=== PATIENT | female | born 1990 | race African-American/Black ===

== ENCOUNTER 2022-02-05 11:36 | Emergency (ER) | payer OTHER, SELFPAY ==
--- NOTE | ~2022-02-05 | XR_ITS ---
EXAMINATION: XR chest 2V DATE: 02/05/2022 12:06 INDICATION: Left chest pain. TECHNIQUE: Frontal and lateral views of the chest were obtained. COMPARISON: Chest single view 07/02/2021 FINDINGS: There is no pneumonia, pleural effusion, or pneumothorax. The heart size is normal. IMPRESSION: 1. No acute cardiopulmonary disease. Reviewed, dictated and finalized at location A.
[2022-02-05 11:40] VITALS: BP 132/81; PULSE 96; RESP 18; TEMP 36.8; O2SAT 100
--- NOTE | 2022-02-05 11:47 | PC.NURSE ---
Dr. Ring at bedside to assess pt.
--- NOTE | 2022-02-05 11:49 | ECG_ITS ---
Measurements Intervals [place] Rate: 86 P: 60 SD: 116 QRS: 25 QRSD: 92 T: 54 QT: 340 QTc: 407 Interpretive Statements SINUS RHYTHM WITH MARKED SINUS ARRHYTHMIA WITH SHORT SD INTERVAL NO PREVIOUS ECG AVAILABLE FOR COMPARISON Electronically Signed On 02-05-2022 18:32:31 CDT by Crista Moulton M.D.
[2022-02-05 11:51] VITALS: PULSE 101; RESP 21
[2022-02-05 12:00] VITALS: PULSE 93; RESP 19
[2022-02-05] MEDS: CYCLOBENZAPRINE HCL 5 MG TABLET PO (12:00)
[2022-02-05] MEDS: IBUPROFEN 600 MG TABLET PO (12:00)
--- NOTE | 2022-02-05 12:03 | PC.NURSE ---
Patient off unit to Radiology
[2022-02-05 12:04] LABS: Basophils Percent Auto 0.7 % (0.2-1.2); Eosinophils Absolute Auto 0.3 K/mm3 (0-0.3); Eosinophils Percent Auto 6.2 % (0-4.4); Hematocrit 38.8 % (37.0-47.0); Hemoglobin 12.7 g/dL (12.0-15.0); Immature Granulocyte Absolute 0.01 K/mm3 (0.00-0.031); Immature Granulocyte Percent A 0.2 % (0-0.5); Lymphocytes Absolute Auto 1.67 K/mm3 (0.9-3.2); Lymphocytes Percent Auto 36.7 % (18.3-44.2); Mean Corpuscular HGB Conc 32.7 g/dl (32-36); Mean Corpuscular Hemoglobin 29.4 pg (26-34); Mean Corpuscular Volume 89.8 fl (80-100); Mean Platelet Volume 9.9 fl (7.4-10.4); Monocytes Absolute Auto 0.4 K/mm3 (0.1-0.6); Neutrophils Absolute Auto 2.2 K/mm3 (1.3-6.7); Neutrophils Percent Auto 47.2 % (45.5-73.1); Platelet Count Result 260 k/mm3 (150-375); Red Blood Count 4.32 M/mm3 (4.2-5.4); Red Cell Distribution Width 12.4 % (11.5-14.5); White Blood Count 4.6 K/mm3 (4.5-10.0)
[2022-02-05 12:10] VITALS: PULSE 78; O2SAT 100
[2022-02-05 12:15] LABS: Alanine Aminotransferase 9 U/L (6-35); Albumin Level 3.9 g/dL (3.5-5.1); Alkaline Phosphatase 87 U/L (38-126); Anion Gap 8 mmol/L (8-16); Aspartate Amino Transferase 21 U/L (14-36); Bilirubin,Total 0.3 mg/dL (0.2-1.3); Blood Urea Nitrogen 10 mg/dL (7-17); Calcium 8.6 mg/dL (8.4-10.2); Carbon Dioxide 24 mmol/L (22-30); Chloride 105 mmol/L (98-107); Estimated CRCL calculation 88 ml/min; Estimated Glomerular Filt Rate > 60; Glucose 89 mg/dL (65-110); Lipase 105 U/L (23-300); Sodium 137 mmol/L (137-145)
--- NOTE | 2022-02-05 12:17 | ED.CHESTPAIN ---
HPI - Chest Pain General Chief Complaint: Chest Pain Stated Complaint: chest pain Time Seen by Provider: 02/05/22 11:46 Source: patient and RN notes reviewed Mode of arrival: ambulatory Limitations: no limitations History of Present Illness HPI narrative: This is a healthy 31 year old female who presents for evaluation of right chest pain. She was sitting on the couch when she was moving and she heard pop to right chest pain. She has been having intermittent sharp pain to right chest that seem worse with movement and occasionally breathing. This started 1 hour ago. She has not taken anything for her pain. Related Data Allergies Allergy/AdvReac Type Severity Reaction Status Date / Time No Known Allergies Allergy Verified 02/05/22 11:46 Review of Systems Review of Systems: All systems reviewed & are unremarkable except as noted in HPI and below Constitutional: Constitutional: Denies chills, Denies fatigue and Denies fever(s) ENT: Denies nasal congestion and Denies sore throat Cardiovascular: Cardiovascular: Reports chest pain, Denies rapid heart rate, Denies radiating jaw, neck or arm pain and Denies slow heart rate Respiratory: Respiratory: Denies chest congestion, Denies cough and Denies dyspnea Gastrointestinal: Gastrointestinal: Denies abdominal pain, Denies bloating, Denies nausea and Denies vomiting PMFSH Past Medical History Medical History (Updated 02/05/22 @ 13:18 by Gela Ring MD) Patient denies medical problems Surgical History Surgical History (Updated 02/05/22 @ 13:10 by Gela Ring MD) No pertinent past surgical history Social History Social History (Updated 02/05/22 @ 13:10 by Gela Ring MD) Smoking status: Never smoker Exam Const: General: no acute distress and alert Nutritional Appearance: well nourished Orientation/consciousness: patient oriented x3 Limitations: no limitations HENMT: Head: normal to inspection Mouth: Yes Normal oral and palatal mucosa present Eyes: EOM: EOMs intact bilaterally Chest: Chest palpation & inspection: tenderness (reproducible right anterior chest wall tenderness) Resp: Effort & Inspection: normal respiratory effort Auscultation: clear to auscultation bilaterally Cardio: Rate: regular rate Rhythm: regular rhythm Heart sounds: no murmurs GI: GI Palp: Yes Soft to palpation, No Tenderness to palpation present (GI), No Guarding due to palpation present (GI) and No Rigid due to palpation Auscultation: normal bowel sounds Back/Spine/Pelvis: Back: no CVA tenderness Skin: General skin exam: normal color Rashes: no rashes Wounds: no wounds Neuro: General: patient oriented x3, moves all extremities and CN's II-XI intact bilaterally Extrem: General: normal to inspection Psych: Mental Status: mental status grossly normal Affect: normal affect Attitude: cooperative Course Reevaluation(s) Reevaluation #1: Patient states she feels better. Her pain seems to be chest wall pain. She is PERC negative so unlikely PE Date: 02/05/22 Time: 13:12 Vital Signs Vital signs: Vital Signs Temperature 98.2 F 02/05/22 11:40 Pulse Rate 96 02/05/22 11:40 Respiratory Rate 18 02/05/22 11:40 Blood Pressure 132/81 02/05/22 11:40 Pulse Oximetry 100 02/05/22 11:40 Oxygen Delivery Room Air 02/05/22 11:40 Temperature 98.2 F 02/05/22 11:40 Pulse Rate 79 02/05/22 13:29 Respiratory Rate 18 02/05/22 13:29 Blood Pressure 102/68 02/05/22 13:29 Pulse Oximetry 100 02/05/22 13:29 Oxygen Delivery Room Air 02/05/22 12:10 MDM - Chest Pain Lab Data Attestation: I reviewed the patient's lab results. Result diagrams: 02/05/22 11:55 02/05/22 11:55 Labs: Lab Results 02/05/22 02/05/22 02/05/22 Range/Units 11:55 11:55 11:55 WBC 4.6 (4.5-10.0) K/mm3 RBC 4.32 (4.2-5.4) M/mm3 Hgb 12.7 (12.0-15.0) g/dL Hct 38.8 (37.0-47.0) % MCV 89.8
[2022-02-05 12:18] LABS: INR 1.1; Prothrombin Time 13.4 Seconds (11.1-14.7)
[2022-02-05 12:19] LABS: Partial Thromboplastin Time 27.3 SECONDS (22.3-36.8)
[2022-02-05 12:26] LABS: Troponin I < 0.012 ng/mL (0.000-0.034)
[2022-02-05 13:29] VITALS: BP 102/68; PULSE 79; RESP 18; O2SAT 100
== END 2022-02-05 13:31 | disposition home or self-care (01) ==
PROVIDERS: Emergency Provider General Practice
DX: R07.89 Other chest pain (principal)
CPT/HCPCS: 36415; 71046; 80053; 83690; 84484; 85025; 85610; 85730; 93005; 99284; A9270